=== PATIENT | female | born 1970 | race Caucasian/White ===

== ENCOUNTER → 2018-01-29 | Day surgery (SDC) | payer OTHER ==
[~2018-01-29] MED LIST: CETI10TA22 PO; FLUT9.9S NS; IV RINGERS,LACTATED 1000ML 1,000 ML IV SCH; L.AC1CAP6 PO; LEVO137T2 PO; LIDOCAINE 1% PF 2 ML VIAL. ID PRN; MIDAZOLAM HCL/PF 2 MG/2 ML VIAL. IV PRN; PROPOFOL 20 ML IV ONE; fentaNYL PF VIAL 100 MCG/2 ML VIAL IV PRN
[2018-01-29 10:50] VITALS: BP 118/74
--- NOTE | 2018-01-29 12:23 | PREOP HP ---
DATE OF SERVICE: 01/29/2018 DATE OF PROCEDURE: 01/29/2018 REQUESTING PHYSICIAN: Dr. Ying Cordoba. PRIMARY CARE PHYSICIAN: . REASON FOR PROCEDURE: Nausea. HISTORY OF PRESENT ILLNESS: This is a 47-year-old female who presents today for nausea. She is to undergo upper endoscopy for further evaluation. ALLERGIES: 1. PENICILLIN. 2. BACTRIM. PAST MEDICAL HISTORY: 1. Reflux. 2. Depression. 3. Hypothyroidism. 4. . 4. Asthma. 5. Anxiety. FAMILY MEDICAL HISTORY: Significant for esophageal cancer in father. Ovarian cancer in aunt and breast cancer aunt. SOCIAL HISTORY: She is a former smoker. She formerly drank 8-14 drinks a week and denies any . DICTATION ENDS HERE KARLA SHANNON MD DR: ARLEN/nya JOB#: [id number] / [id number]
--- NOTE | 2018-01-29 12:36 | PREOP HP ---
DATE OF SERVICE: 01/29/2018 DATE OF PROCEDURE: 01/29/2018 REQUESTING PHYSICIAN: Dr. Ying Cordoba. PRIMARY CARE PHYSICIAN: . REASON FOR PROCEDURE: Nausea. HISTORY OF PRESENT ILLNESS: This is a 47-year-old female who presents today for nausea. She is to undergo upper endoscopy for further evaluation. ALLERGIES: 1. PENICILLIN. 2. BACTRIM. PAST MEDICAL HISTORY: 1. Reflux. 2. Depression. 3. Hypothyroidism. 4. . 4. Asthma. 5. Anxiety. FAMILY MEDICAL HISTORY: Significant for esophageal cancer in father. Ovarian cancer in aunt and breast cancer aunt. SOCIAL HISTORY: She is a former smoker. She formerly drank 8-14 drinks a week and denies any . MEDICATIONS: 1. Synthroid. 2. Zoloft. 3. Fluticasone. 4. Probiotics. REVIEW OF SYSTEMS: A 13-point review of systems was done, is positive as per HPI and otherwise negative. PHYSICAL EXAMINATION: VITAL SIGNS: She is afebrile. Vital signs are stable. GENERAL: She is a well-developed, well-nourished female, in no apparent distress. HEENT: Oropharynx is clear. CARDIOVASCULAR: S1, S2. LUNGS: Clear. ABDOMEN: Normoactive bowel sounds, soft, nontender, nondistended. EXTREMITIES: No edema. NEUROLOGIC: Awake, alert and oriented x 3. ASSESSMENT AND PLAN: Nausea. She is to undergo upper endoscopy for further evaluation. The risks and benefits including bleeding, perforation, non-diagnosis and sedation were explained and she has agreed to proceed. Thank you for allowing me to participate in the care of this patient. KARLA SHANNON MD DR: ARLEN/nya JOB#: [id number] / [id number]
[2018-01-29 13:56] LABS: U PREG PATIENT NEGATIVE (NEG)
--- NOTE | 2018-01-30 16:09 | PATHOLOGY ---
[facility] Accession Number: [id number] . 01 Material submitted: . PART A: SMALL BOWEL PART B: GASTRIC ANTRUM BIOPSY PART C: DISTAL ESOPHAGUS . 01 Clinical history: . Nausea . 02 Diagnosis: A. Small bowel biopsies: - No significant pathologic abnormalities. . B. Gastric biopsies, antrum: - Chronic gastritis, mild. . C. 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 [facility]/01/30/2018 . 02 Comment: Sections of the small bowel biopsy reveal segments of duodenal mucosa. Where best oriented, the mucosal villi show no sprue-like changes or significant inflammatory changes. . Sections of the gastric biopsy reveal segments of gastric antral/body transition mucosa showing congestion and mild chronic inflammation. A properly controlled immunoperoxidase stain for Helicobacter is negative for Helicobacter organisms. . 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 There is no dysplasia or evidence of malignancy. (JPM:[facility] 01/30/2018) . Special stain performed: Immunoperoxidase for Helicobacter on B1 . 02 Electronically signed: . Carlito Oh MD, Pathologist NPI- [id number] . 01 Gross description: . A. Received in formalin labeled "Dalila Hansen, small bowel BX," are 2 segments of crowe soft tissue measuring 0.9 x 0.3 x 0.2 cm in aggregate dimensions and ranging from 0.4 to 0.5 cm in maximum dimension. The specimen is submitted entirely in cassette A1. . B. Received in formalin labeled "Dalila Hansen, gastric antrum BX," is a single segment of crowe soft tissue measuring 0.7 cm in maximum dimension. The specimen is submitted entirely in cassette B1. . C. Received in formalin labeled "Dalila Hansen, distal esophagus BX," are 2 segments of crowe soft tissue measuring 0.7 x 0.3 x 0.3 cm in aggregate dimensions and ranging from 0.3 to 0.4 cm in maximum dimension. The specimen is submitted entirely in cassette C1. ([facility]; 01/29/2018) TOB/TOB . 02 Pathologist provided ICD-10: K29.50, K22.70, K20.9 . 02 CPT . 436731, 031391, 414431, [id number] Specimen Comment: A courtesy copy of this report has been sent to Specimen Comment: [phone]. Specimen Comment: Report sent to Performed at: 01 [facility] [address], [place] [id number] MD Javon Villalobos MD Phone: [phone] Performed at: 02 [facility] [address], [place] [id number] MD Carlito Oh MD Phone: [phone]
== END | disposition home or self-care (01) ==
LOC: SURG 08:54
PROVIDERS: ATTEND Internal Medicine Gastroenterology
DX: K21.0 Gastro-esophageal reflux disease with esophagitis (principal); K29.50 Unspecified chronic gastritis without bleeding; F32.9 Major depressive disorder, single episode, unspecified; E03.9 Hypothyroidism, unspecified; J45.909 Unspecified asthma, uncomplicated; F41.9 Anxiety disorder, unspecified; Z80.0 Family history of malignant neoplasm of digestive organs; Z87.891 Personal history of nicotine dependence; Z72.89 Other problems related to lifestyle; Z79.899 Other long term (current) drug therapy; Z88.2 Allergy status to sulfonamides; Z88.0 Allergy status to penicillin; Z88.6 Allergy status to analgesic agent
CPT/HCPCS: 43239; 81025; 88305; 88342; J2704